=== PATIENT | female | born 1995 | race Caucasian/White ===

== ENCOUNTER 2017-09-15 12:40 | Emergency (ER) | payer SELFPAY ==
[~2017-09-15] VITALS: Ht 157.5 cm; Wt 55.0 kg
[2017-09-15 12:48] VITALS: BP 121/78; PULSE 100; RESP 16; TEMP 98.5; O2SAT 100
[2017-09-15] MEDS ORDERED: SUDO4TAB PO (13:03)
[2017-09-15] MEDS ORDERED: AZIT500T2 PO (13:14)
[2017-09-15] MEDS ORDERED: BENZ100 PO (13:14)
[2017-09-15] MEDS ORDERED: MOME17I EACH NARE (13:14)
--- NOTE | 2017-09-15 13:15 | PD ---
HPI Chief Complaint: Cold / Flu Symptoms Time Seen by Provider: 13:05 Travel History International Travel<30 days: No Contact w/Intl Traveler<30days: No Traveled to known affect area: No History of Present Illness HPI 22-year-old female presents to emergency department with complaint of cough, sore throat, sinus congestion, sinus pressure, ear pressure, nasal congestion 1 week. Reports subjective fevers. Has not taken her temperature cannot report a T-max. Denies chest pain, shortness breath, wheezing, abdominal pain, vomiting. Has been using cough and cold medications for symptom management with some relief. Her daughter was recently diagnosed with pneumonia. No known aggravating factors. Symptoms are mild to moderate in severity. No primary care provider. No known allergies. Denies significant past medical history. Has no other medical complaints. No other modifying factors or associated signs and symptoms. 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,METH, CRACK) Allergies-Medications (Allergen,Severity, Reaction): Coded Allergies: No Known Allergies (Unverified , 10/31/13) Reported Meds & Prescriptions Reported Meds & Active Scripts Active Tessalon Perles (Benzonatate) 100 Mg Cap 100 Mg PO TID PRN Nasonex Nasal Bode (Mometasone Furoate) 50 Mcg/Act Naspr 2 Bode EACH NARE DAILY PRN Azithromycin 500 Mg Tab 500 Mg PO DAILY Reported Sudogest Sinus & Allergy (Chlorpheniramine-Pseudoephedrine) 4-60 Mg Tab 1 Tab PO Q4H PRN Review of Systems Except as stated in HPI: all other systems reviewed are Neg Physical Exam Narrative GENERAL: Well-nourished, well-developed feet patient, in no acute distress; afebrile, nontoxic-appearing SKIN: Warm and dry. No rash. HEAD: Atraumatic. Normocephalic. Frontal and maxillary sinus tenderness on palpation. EYES: Pupils equal and round at 3 mm with brisk reaction. No scleral icterus. No injection or drainage. PERRLA. ENT: Mucosa pink and moist. Oropharynx without erythema, exudates, tonsillar edema.. No uvular edema. No uvular, palatal, or tonsillar deviation. Airway patent. EARS: Bilateral pinnae and external canals appear within normal limits. Bilateral tympanic membranes without erythema, dullness or perforation. NECK: Trachea midline. No lymphadenopathy. CARDIOVASCULAR: Regular rate and rhythm. No murmur appreciated. RESPIRATORY: No accessory muscle use. Clear to auscultation. Breath sounds equal bilaterally. GASTROINTESTINAL: Flat. MUSCULOSKELETAL: No obvious deformities. No clubbing. No cyanosis. No edema. NEUROLOGICAL: Awake and alert. Oriented 3. No obvious cranial nerve deficits. Motor grossly within normal limits. Normal speech. Moves all extremities. 5/5 strength to all extremities. PSYCHIATRIC: Appropriate mood and affect; insight and judgment normal. Data Data Last Documented VS Vital Signs Date Time Temp Pulse Resp B/P (MAP) Pulse Ox O2 Delivery O2 Flow Rate FiO2 09/15/17 12:48 98.5 100 16 121/78 (92) 100 Orders Orders Ed Discharge Order (09/15/17 13:16) [facility] Medical Decision Making Medical Screen Exam Complete: Yes Emergency Medical Condition: Yes Medical Record Reviewed: Yes Differential Diagnosis Upper respiratory infection, sinusitis, viral illness, pneumonia, bronchitis Narrative Course 22-year-old female with cough and cold symptoms 1 week. Physical exam is unremarkable. Patient is afebrile and nontoxic-appearing. She reports subjective fever. Her daughter was diagnosed with pneumonia. Her lungs are clear and equal throughout. I do not suspect pneumonia. She denies chest tightness or shortness of breath. Will treat patient with azithromycin secondary to length of illness and exposure to pneumonia. Azithromycin, Tessalon Perles, Nasonex nasal spray prescribed for home. Instructed patient to follow up with primary care provider. Patient verbalizes understanding and agreement with treatment plan. Patient is medically cleared and stable for discharge. Discussed reasons to return to the emergency department. Patient agrees with treatment plan. The patients vital signs are stable and the patient is stable for outpatient follow-up and treatment. Patient discharged home, stable and in no acute distress. Diagnosis Primary Impression: Upper respiratory infection Qualified Codes: J06.9 - Acute upper respiratory infection, unspecified Referrals: [facility] Primary Care Physician Patient Instructions: Cold Symptoms (ED), General Instructions, Safe Use of Cough and Cold Medicines (ED), Upper Respiratory Infection (ED) Departure Forms: Tests/Procedures, Work Release Enter return to work date: Sep 16, 2017 Additional Instructions: Ibuprofen or Tylenol as directed and as needed to reduce fever; may alternate ibuprofen and Tylenol as needed every 3 hours to minimize fever [id number] cold/flu medications as directed and as needed for symptom management Get plenty of sleep/rest Drink plenty of fluids to prevent dehydration; such as Gatorade, Powerade, Pedialyte [place] diet to encourage nutrition such as crackers, fruit, applesauce, toast, soup etc. Use an air humidifier/turn off ceiling fans Follow-up with your primary care provider Return immediately to the emergency department with worsening of symptoms Med/Other Pt SpecificInfo: Prescription(s) given Scripts Benzonatate (Tessalon Perles) 100 Mg Cap 100 MG PO TID Y for COUGH, #10 CAP 0 Refills Prov: Suzanne Olivera 09/15/17 Mometasone Nasal Bode (Nasonex Nasal Bode) 50 Mcg/Act Naspr 2 SPRAY EACH NARE DAILY Y for NASAL CONGESTION, #1 BOTTLE 0 Refills Prov: Suzanne Olivera 09/15/17 Azithromycin (Azithromycin) 500 Mg Tab 500 MG PO DAILY for Infection, #5 TAB 0 Refills Prov: Suzanne Olivera 09/15/17 Disposition: 01 DISCHARGE HOME Condition: Stable Suzanne Olivera Sep 15, 2017 13:15
== END 2017-09-15 13:30 | disposition home or self-care (01) ==
LOC: NEPK 12:40
DX: J06.9 Acute upper respiratory infection, unspecified (principal); F17.210 Nicotine dependence, cigarettes, uncomplicated
CPT/HCPCS: 99283